=== PATIENT | female | born 1970 | race Caucasian/White ===

== ENCOUNTER → 2018-06-05 | Outpatient (CLI) | payer BC ==
[~2018-06-05] MED LIST: ACET325T9 PO; CITA20TA6 PO; FLECTOR1 EACH TD; IBUP-1027 PO; LIDOCAINE 2%/EPI 1:100,000 20 ML VIAL. IJ ONE; NORG1TAB8 PO; OXYC1TAB15 PO
--- NOTE | 2018-06-07 11:09 | PATHOLOGY ---
[facility] Accession Number: [id number] . 01 Material submitted: . LEFT BREAST TISSUE, 6:00, 8CMFN . 01 Clinical history: . Left breast mass . 02 Diagnosis: Breast tissue, left breast mass 6:00 needle biopsies: - INVASIVE DUCTAL CARCINOMA, HISTOLOGIC GRADE 2. SEE COMMENT. LBQ/06/06/2018 . 02 Comment: Sections of the left breast mass at 6:00 needle biopsy reveal an invasive mammary carcinoma. The tumor shows little tubule formation, moderate nuclear pleomorphism, and focal moderate mitotic activity. The invasive carcinoma measures up to 0.8-0.9 cm in greatest dimension on the glass slide. There is no lymphovascular tumor invasion. There are no tumor associated calcifications. The morphologic findings are supportive of the diagnosis of an invasive ductal carcinoma, histologic grade 2. Breast prognostic studies will be obtained, the results of which will be reported separately. The case is also examined by Dr. Sharif, who concurs with the diagnosis. (JPM/db; 06/06/2018) . 02 Electronically signed: . Jaylen Edouard MD, Pathologist NPI- [id number] . 01 Gross description: . Received in formalin labeled "Elizabeth Gracia, left breast 6:00," and additionally labeled on the requisition as "8 cm FN," are multiple needle cores of yellow-cuenca fibrofatty tissue measuring 2.1 x 1.2 x 0.3 cm in aggregate dimensions. The tissue is submitted in its entirety in cassette A1 through A3. The cold ischemic time is 2 minutes. The total formalin fixation time is 12 hours and 34 minutes. (TSD; 06/05/2018) TOB/TOB . 02 Pathologist provided ICD-10: C50.912 . 02 CPT . 682851 Specimen Comment: A courtesy copy of this report has been sent to Specimen Comment: [phone], , . Specimen Comment: Report sent to ,DR LUEVANO / DR HUERTA Performed at: 01 [facility] [address], [place] [id number] MD Abdoulaye Jaime MD Phone: [phone] Performed at: 02 [facility] [address], [place] [id number] MD Jaylen Edouard MD Phone: [phone]
--- NOTE | 2018-06-07 11:30 | RAD ---
Ultrasound-guided left breast biopsy, 06/05/2018: History: Breast nodule Previous studies demonstrated a suspicious nodule at the 5-6:00 location in the left breast. Under local anesthesia, aseptic conditions and sonographic guidance the [facility] biopsy instrument was passed into the posterior aspect of this nodule via a lateral approach. Multiple 12-gauge vacuum-assisted core samples were obtained and sent to pathology for evaluation. A biopsy marker was then deposited at the biopsy site. The biopsy instrument was removed and hemostasis obtained. Two-view postprocedural digital mammograms were obtained to document position of the biopsy marker. The marker lies along the anterior margin of the biopsied lesion. The patient tolerated the procedure well and left the department in good condition. The subsequent pathology report indicated the presence of invasive ductal carcinoma. This is considered to be a concordant finding. Note: The findings were called to personnel in Dr. Klein's office at 11:25 AM on 06/07/2018.
--- NOTE | 2018-06-13 08:34 | RAD ---
Ultrasound-guided left breast biopsy, 06/05/2018: History: Breast nodule Previous studies demonstrated a suspicious nodule at the 5-6:00 location in the left breast. Under local anesthesia, aseptic conditions and sonographic guidance the [employer] biopsy instrument was passed into the posterior aspect of this nodule via a lateral approach. Multiple 12-gauge vacuum-assisted core samples were obtained and sent to pathology for evaluation. A biopsy marker was then deposited at the biopsy site. The biopsy instrument was removed and hemostasis obtained. Two-view postprocedural digital mammograms were obtained to document position of the biopsy marker. The marker lies along the anterior margin of the biopsied lesion. The patient tolerated the procedure well and left the department in good condition. The subsequent pathology report indicated the presence of invasive ductal carcinoma. This is considered to be a concordant finding. Note: The findings were called to personnel in Dr. Klein's office at 11:25 AM on 06/07/2018. DICTATED and SIGNED BY: BELKIS AU MD DATE: 06/05/18 0932 MTDD
== END | disposition home or self-care (01) ==
LOC: US 08:11
PROVIDERS: ATTEND Surgery
DX: C50.112 Malignant neoplasm of central portion of left female breast (principal); F17.210 Nicotine dependence, cigarettes, uncomplicated; Z85.3 Personal history of malignant neoplasm of breast; Z91.048 Other nonmedicinal substance allergy status
CPT/HCPCS: 19083; 77065; 88305; 88361; C1713; 19085; 76942

== ENCOUNTER 2018-06-26 06:29 | Inpatient (IN) | payer BC ==
[2018-06-26] VITALS (9 sets, daily range): BP systolic 101–119; BP diastolic 52–69
[~2018-06-26] VITALS: Ht 172.7 cm; Wt 98.0 kg
[~2018-06-26 06:29] MED LIST changes: -ACET325T9 PO; -LIDOCAINE 2%/EPI 1:100,000 20 ML VIAL. IJ ONE; -OXYC1TAB15 PO
[2018-06-26] MEDS ORDERED: ONDANSETRON PF 4 MG/2 ML VIAL. IV PRN ×2 (07:00→12:00)
[2018-06-26] MEDS ORDERED: HYDROmorphone 2 MG/ML VIAL IV PRN ×2 (07:00→12:00)
[2018-06-26] MEDS ORDERED: MORPHINE SULFATE 2 MG/ML VIAL. IV PRN (07:00)
[2018-06-26] MEDS ORDERED: LIDOCAINE 1% PF 2 ML VIAL. ID PRN (07:00)
[2018-06-26] MEDS ORDERED: fentaNYL PF VIAL 100 MCG/2 ML VIAL IV PRN ×2 (07:00)
[2018-06-26] MEDS ORDERED: PROCHLORPERAZINE 10 MG/2 ML VIAL. IV PRN (07:00)
[2018-06-26] MEDS: IV RINGERS,LACTATED 1000ML 1,000 ML IV SCH ×2 (07:01→12:14)
[2018-06-26] MEDS ORDERED: ceFAZolin 2GM PREMIX 2 GM/50 ML BAG IV ONE (08:00)
[2018-06-26] MEDS ORDERED: ISOSULFAN BLUE 50 MG/5 ML VIAL. SQ ONE (08:13)
[2018-06-26] MEDS ORDERED: LIDOCAINE 2% PF 5 ML VIAL. ONE (08:19)
[2018-06-26] MEDS ORDERED: PROPOFOL 20 ML IV ONE (08:19)
[2018-06-26] MEDS ORDERED: ONDANSETRON PF 4 MG/2 ML VIAL. ONE (08:19)
[2018-06-26] MEDS ORDERED: SEVOFLURANE 61 TO 120 MINUTES. IH ONE (08:19)
[2018-06-26] MEDS ORDERED: BUPIVAC MPF-EPI 0.5%-1:200000 30 ML VIAL. ONE (08:33)
[2018-06-26] MEDS ORDERED: IOHEXOL 300 MG/ML 100ML VIAL. ONE (08:34)
[2018-06-26] MEDS ORDERED: KETOROLAC 30 MG/ML INJ FOR OR. INJ ONE (10:52)
[2018-06-26] MEDS ORDERED: fentaNYL PF VIAL 100 MCG/2 ML VIAL ONE (11:22)
--- NOTE | 2018-06-26 11:52 | PDOC ---
BRIEF OPERATIVE NOTE Date: Jun 26, 2018 Pre-Op Diagnosis invasive carcinoma left breast Post-Op Diagnosis same Procedure Performed left breast lumpectomy with axillary node dissection after SLN biopsies times three Surgeon Ernie Male Impersonator Rupali BASS Anesthesia Type: General Blood Loss 50cc IV Fluid 650cc Specimens Obtained SLN times three, left breast mass 6:00, left axillary contents Findings positive SLN Complications none JERRY LUEVANO MD Jun 26, 2018 11:52
[2018-06-26] MEDS ORDERED: diphenhydrAMINE HCL 25 MG CAPSULE PO PRN (12:00)
[2018-06-26] MEDS ORDERED: 0.9 % SODIUM CHLORIDE 10 ML DISP.SYRIN. IV PRN (12:00)
[2018-06-26] MEDS ORDERED: oxyCODONE/APAP 5/325 1 TAB TABLET PO PRN (12:00)
[2018-06-26] MEDS ORDERED: diphenhydrAMINE 50 MG/ML VIAL ONE (12:09)
[2018-06-26] MEDS ORDERED: diphenhydrAMINE 50 MG/ML VIAL IVP ONE (12:15)
[2018-06-26] MEDS ORDERED: FAMOTIDINE 20 MG/2 ML VIAL IVP ONE (12:45)
[2018-06-26] MEDS ORDERED: FAMOTIDINE 20 MG/2 ML VIAL ONE (12:46)
--- NOTE | 2018-06-26 14:01 | NUR ---
Patient brought up by transport via bed from PACU. Patient is resting in room 420. Admission in progress.
[2018-06-26] MEDS: POTASSIUM CL 20MEQ-0.45% NACL 1,000 ML IV SCH (14:22)
[2018-06-26] MEDS: oxyCODONE/APAP 5/325 1 TAB TABLET PO PRN ×2 (19:22→23:18)
[2018-06-26] MEDS: DOCUSATE SODIUM 100 MG CAPSULE. PO SCH (21:10)
[2018-06-27] MEDS: POTASSIUM CL 20MEQ-0.45% NACL 1,000 ML IV SCH ×2 (01:45→12:52)
[2018-06-27 03:00] VITALS: BP 113/65
[2018-06-27] MEDS: oxyCODONE/APAP 5/325 1 TAB TABLET PO PRN ×2 (06:03→12:39)
[2018-06-27 07:00] VITALS: BP 112/62
[2018-06-27] MEDS: DOCUSATE SODIUM 100 MG CAPSULE. PO SCH (08:15)
[2018-06-27] MEDS ORDERED: ENOXAPARIN 40 MG/0.4 ML SYRINGE. SQ SCH (09:00)
[2018-06-27] MEDS ORDERED: OXYC1TAB15 PO (09:30)
--- NOTE | 2018-06-27 09:30 | PDOC ---
GARY REYES APRN 06/27/18 0930: SURGICAL PROGRESS NOTE Subjective pain better controlled no nausea or emesis urinating tolerating diet Vital Signs Vital Signs Date Time Temp Pulse Resp B/P (MAP) Pulse Ox O2 Delivery O2 Flow Rate FiO2 06/27/18 07:10 Room Air 06/27/18 07:00 97.8 72 16 112/62 (79) 94 97.8 06/26/18 11:48 10 I&O Intake and Output 06/27/18 07:00 Intake Total 1450 ml Output Total 2220 ml Balance -770 ml Intake Oral 300 ml IV Total 1150 ml Output Urine Total 2050 ml Drainage Total 120 ml Estimated Blood Loss 50 ml # Voids 1 General: Alert, Oriented X3, Cooperative, No acute distress Skin: Other (left breast incision dressing dry, verito serosang) Problem List s/p left breast lumpectomy, axillary node dissection Home after lunch if pain managed JERRY LUEVANO MD 06/27/18 1055: SURGICAL PROGRESS NOTE Assessment/Plan pt seen at bedside questions answered home today f/u [facility] office GARY REYES APRN Jun 27, 2018 09:30 JERRY LUEVANO MD Jun 27, 2018 10:55
--- NOTE | 2018-06-27 09:32 | DISCH ---
DISCHARGE INSTRUCTIONS Condition on Discharge Condition on Discharge: Stable Activity After Discharge Activity Instructions for Disc: Activity as tolerated Bathing Instructions: Shower-keep dressing dry Driving Instructions after Dis: Do not drive Diet after Discharge Diet after Discharge: Regular Wound Incision Care Wound/Incision Care: May get incision wet, Reinforce dressing PRN Other wound/incision instructi: drain care, empty am/pm record output Contacting the DRFlor after DC Call your doctor for: Concerns you may have Follow-Up Follow up with: Dr Klein 1 week GARY REYES WHITE LEAD FILTERER Jun 27, 2018 09:32
--- NOTE | 2018-06-27 10:57 | PDOC3 ---
Discharge Summary Visit Information Date of Admission: Jun 26, 2018 Date of Discharge: Jun 27, 2018 Admitting Diagnosis Comment: invasive carcinoma left breast Final Diagnosis same with LN metastasis Brief Hospital Course Allergies Allergies Coded Allergies Type Severity Reaction Last Updated Verified No Known Drug Allergies 06/26/18 No Vital Signs Vital Signs Date Time Temp Pulse Resp B/P (MAP) Pulse Ox O2 Delivery O2 Flow Rate FiO2 06/27/18 07:10 Room Air 06/27/18 07:00 97.8 72 16 112/62 (79) 94 97.8 06/26/18 11:48 10 Brief Hospital Course Ms. Gracia is a 48 old female who presented with biopsy proven invasive carcinoma left breast Discharge Information Condition at Discharge: Stable Follow Up: As Needed Disposition/Orders: D/C to Home Scheduled Ibuprofen (Ibuprofen) 400 Mg Tablet, 400 MG PO HS, (Reported) Entered as Reported by: TIANNA FLORES on 03/21/13 1027 Last Taken: Unknown Dose on 06/11/18 Last Action: HELD on 06/26/18 1152 by JERRY LUEVANO Discontinued Medications Citalopram Hydrobromide (Citalopram Hbr) 20 Mg Tablet, 20 MG PO DAILY, (Reported) Entered as Reported by: TIANNA FLORES on 03/21/13 1027 Last Action: Discontinued on 06/22/18 1551 by GALINA STACY Diclofenac Epolamine (Flector) 1 Each Patch.td12, 1 EACH TD BID, (Reported) Entered as Reported by: TIANNA FLORES on 03/21/13 1027 Last Action: Discontinued on 06/22/18 1551 by GALINA STACY Norgestrel-Ethinyl Estradiol (Cryselle) 1 Each Tablet, 1 EACH PO DAILY, (Reported) Entered as Reported by: TIANNA FLORES on 03/21/13 1027 Last Action: Discontinued on 06/22/18 1551 by JERRY DIAS MD Jun 27, 2018 10:57
[2018-06-27 11:00] VITALS: BP 104/53
--- NOTE | 2018-06-27 11:48 | NUR ---
SW following for discharge planning. Discussed with RN, pt is from home with family. Pt having a biopsy today. SW will continue to follow for any discharge planning needs.
--- NOTE | 2018-06-27 11:48 | OP ---
DATE OF SURGERY: 06/27/2018 PREOPERATIVE DIAGNOSIS: Invasive carcinoma, left breast. POSTOPERATIVE DIAGNOSIS: Invasive carcinoma, left breast. PROCEDURE: Left breast lumpectomy with axillary node dissection after sentinel lymph node biopsies x 3. SURGEON: Joshua Luevano MD. HAIR DRESSER: SHELIA Adams. ANESTHESIA: General LMA. ESTIMATED BLOOD LOSS: 50 mL. INTRAVENOUS FLUIDS: 650. INDICATIONS: The patient is a 48-year-old with biopsy proven invasive carcinoma of left breast. She is brought for lumpectomy with sentinel lymph node sampling. OPERATIVE FINDINGS: One of the sentinel node samples showed a focus of invasive cancer and as such, we proceeded with axillary dissection. OPERATIVE REPORT: The patient went to the Radiology suite where she underwent needle localization of the previous biopsy site as well as injection for sentinel node identification. She was taken to the OR, given a general LMA and the left breast prepped and draped in usual sterile fashion. 4 mL of Lymphazurin was injected intradermally circumareolarly in the quadrant corresponding to the mass. Breast was gently massaged for 4 minutes. An axillary incision was made using the C-Trak as a guide and dissection was carried down into the axilla where 3 areas of stained blue "hot" nodes were harvested and sent to Pathology. While awaiting those results, the lumpectomy was performed in the lower quadrant of the breast after infiltrating the skin with local anesthetic. An incision was made and the localization wire delivered into the wound. The mass was removed en bloc and sent to Radiology where specimen radiograph confirmed the presence of the biopsy marker and the localization needle and the radiographically evident mass. Hemostasis obtained with cautery. The breast tissue was approximated with 3-0 Vicryl. The skin was closed with a subcuticular 4-0 Monocryl. Intraoperative report showed one sentinel node involved with metastatic tumor. As such, the axillary contents were swept out en bloc from the axillary vein inferiorly. Care was taken to preserve the long thoracic nerve and the thoracodorsal neurovascular bundle. Hemostasis obtained with cautery. When a correct sponge count was obtained, a 19-Iranian round Arcadio drain was brought through inferior stab wound, sewn to the skin with a silk stitch and left in the depth of the wound for postoperative drainage. Skin closed with subcuticular 4-0 Monocryl. Steri-Strips and sterile dressings applied. The patient awakened from her anesthetic and taken to the recovery room in satisfactory condition. JOSHUA LUEVANO MD DR: TONY/kate JOB#: [id number] / [id number]
--- NOTE | 2018-06-27 13:53 | NUR ---
Pt was discharged to home at 1350 today in stable condition with all personal belongings after reviewing all pertinent information including education, medications, follow up and at home care. Follow up appt scheduled with Dr. Klein at [facility], bulb drain care demonstrated along with written instructions were sent along with pt who was escorted by staff and family to the main exit and driven home by her .
--- NOTE | 2018-06-30 10:07 | PATHOLOGY ---
[facility] Accession Number: [id number] . 01 Material submitted: . PART A: lymph node - LEFT AXILLARY SENTINEL NODE - FS. Modifiers: left, axillary tail PART B: lymph node - LEFT AXILLARY NODE - FS. Modifiers: left, axillary tail PART C: lymph node - LEFT AXILLARY SENTINEL LYMPH NODE - FS. Modifiers: left, axillary tail PART D: breast - LEFT BREAST MASS, 6:00. Modifiers: left, 6:00 PART E: axillary tail of breast - LEFT AXILLARY TISSUE. Modifiers: left . 01 Clinical history: . Left breast lumpectomy; invasive ductal carcinoma, histologic grade II. . 02 Frozen section diagnosis: . GROSS DESCRIPTION A. Part A is received fresh and it is labeled "left axillary sentinel lymph node, hot and blue", and it consists of a 1.5 x 1.3 x 1.2 cm piece of pink-yellow tissue. The specimen is dissected revealing a possible lymph node measuring up to 0.8 x 0.2 x 0.2 cm. This is bisected and all submitted for frozen in block A1. . B. Part B is received fresh and it is labeled "left axillary sentinel lymph node, hot and blue", and it consists of a 3.3 x 2.7 x 1.5 cm piece of pink-yellow adipose tissue. Dissection of the specimen reveals a largely fatty replaced lymph node which measures 1.5 x 0.3 x 0.3 cm. This lymph node is serially sectioned and all submitted in B1-B2 for frozen section. . C. Part C is received fresh and it is labeled "left axillary sentinel lymph node, hot", and it consists of a 2.0 x 1.7 x 1.0 cm piece of pink-yellow soft tissue. Dissection of the specimen reveals a largely fatty replaced lymph node measuring 1.2 x 0.4 x 0.3 cm. This lymph node is bisected and all frozen on block C1. (SK:karthik; 06/26/2018) . FROZEN SECTION DIAGNOSIS: A. Left axillary sentinel lymph node, hot and blue: - Adipose tissue. No definite lymph node. . B. Left axillary sentinel lymph node, hot and blue: - Positive for adenocarcinoma (1 lymph node). . C. Left axillary sentinel lymph node, hot: - One lymph node with no evidence of carcinoma. (SKM:karthik; 06/26/2018) . Frozen section performed at [facility], [address] [facility] [place] [address]. MPK/MBR . 02 Diagnosis: A. Left axillary sentinel lymph node #1, hot and blue: - Fibroadipose tissue - no lymph node identified. . B. Left axillary sentinel lymph node #2, hot and blue: - Metastatic adenocarcinoma. . C. Left axillary sentinel lymph node #3, hot: - Negative for tumor. . D. Breast tissue, left breast wire localized lumpectomy: - Invasive ductal carcinoma, histologic grade 2, forming a tumor mass measuring up to 1.2 cm in greatest dimension. 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 - Invasive carcinoma is approximately 0.3 cm from the closest inked margin. - DCIS is approximately 0.1-0.2 cm from the closest inked margin. - Previous biopsy site changes. - Fibrocystic changes. . E. Segments of adipose tissue and lymph nodes, left axillary: - Seven lymph nodes negative for tumor (0/7). . (JPM:karthik; 06/28/2018) . Special stains performed: Immunoperoxidase stains for AE1/AE3 are performed on A1 and C1. MBR/06/29/2018 . 02 Comment: Sections of the left breast wire localized lumpectomy reveal an invasive grade 2 ductal carcinoma which measures up to 1.2 cm in greatest dimension. Invasive carcinoma is approximately 0.3 cm from the closest inked margin. There is also accompanying intermediate to high-grade ductal carcinoma in situ. DCIS focally is 0.1-0.2 cm from the closest inked margin. . The sentinel lymph nodes are examined at multiple levels. Sections of left axillary sentinel lymph node #1 reveal fibroadipose tissue with no lymph node identified. Sections of left axillary sentinel lymph node #2 show metastatic adenocarcinoma measuring up to 3 mm in greatest dimension. Immunoperoxidase stains for AE1/AE3 are obtained on left sentinel lymph node #1 and left sentinel lymph node #3 and yield the following results: . AE1/AE3 (A1): No lymph node identified - negative for tumor. AE1/AE3 (C1): Negative for tumor. . Thus there are a total of 2 sentinel lymph nodes, one of which shows metastatic adenocarcinoma. . Sections of the separately submitted axillary tissue reveal 7 lymph nodes, all of which are negative for tumor. . Procedure ___ Other: Wire-localized lumpectomy . Specimen Laterality ___ Left . Tumor Site ___ Clock position: 6 o'clock . Tumor Size ___ Greatest dimension of largest invasive focus >1 mm (specify exact measurement) (millimeters): 12 mm . Histologic Type ___ Invasive carcinoma of no special type (invasive ductal carcinoma, not otherwise specified) . Histologic Grade Glandular (Acinar)/Tubular Differentiation ___ Score 3 (<10% of tumor area forming glandular/tubular structures) . Nuclear Pleomorphism ___ Score 2 (cells larger than normal with open vesicular nuclei, visible nucleoli, and moderate variability in both size and shape) . Mitotic Rate ___ Score 2 (4-7 mitoses per mm2) (see Table 1) . Overall Grade ___ Grade 2 (scores of 6 or 7) . Tumor Focality ___ Single focus of invasive carcinoma . Ductal Carcinoma In Situ (DCIS) ___ Present . Architectural Patterns ___ Cribriform ___ Solid . Nuclear Grade ___ Grade 2-3 . Necrosis ___ Not identified . Lobular Carcinoma In Situ ___ No LCIS in specimen . Margins Invasive Carcinoma Margins ___ Uninvolved by invasive carcinoma ___ Distance from closest margin: 3 mm ___ Specify closest margin: ___ Cannot be determined: Specimen not oriented . DCIS Margins ___ Uninvolved by DCIS ___ Distance from closest margin: 1-2 mm ___ Specify closest margin: ___ Cannot be determined: Specimen not oriented. . Regional Lymph Nodes ___ Uninvolved by tumor cells ___ Number of Lymph Nodes Examined: 8 ___ Number of [place] Nodes Examined: 1 . ___ Involved by tumor cells ___ Number of Lymph Nodes with Macrometastases (>2 mm): 1 ___ Size of Largest Metastatic Deposit: 3 mm ___ Extranodal Extension: - Not identified ___ Number of Lymph Nodes Examined: 1 ___ Number of [place] Nodes Examined: 1 . Treatment Effect ___ No known presurgical therapy . Lymphovascular Invasion ___ Not identified . Pathologic Stage Classification (pTNM, AJCC 8th Edition) Primary Tumor (Invasive Carcinoma) ___ pT1c:Tumor >10 mm but < or =20 mm in greatest dimension . Regional Lymph Nodes (pN) Category (pN) ___ pN1a:Metastases in 1 to 3 axillary lymph nodes, at least 1 metastasis larger than 2.0 mm . Additional Pathologic Findings ___Specify: Fibrocystic changes . Microcalcifications ___ Present in DCIS ___ Present in non-neoplastic tissue . Clinical History ___ Radiologic finding - Mass or architectural distortion . . (JPM:brewing director; 06/29/2018) . 02 Electronically signed: . Jaylen Edouard MD, Pathologist NPI- [id number] . 01 Gross description: . D.The specimen is received in formalin, labeled "Elizabeth Gracia, left breast mass, 6:00", is an unoriented fibroadipose tissue with a guide wire in situ weighing 77 g and measuring 9.0 x 6.0 x 2.2 cm. The specimen is partially covered by a thin cuenca-white membrane. The specimen is inked black, serially sectioned perpendicular to the guidewire into 18 slices to reveal a well demarcated cuenca-white, firm mass adjacent to guide wire tip measuring 1.2 x 1.0 x 0.8 cm in slice #11 to slice #13. The mass is 0.2 cm to the closest peripheral margin and greater than 2.0 cm from the remaining margins. The parenchyma surrounding the mass is ha-pink and fibrous. The remaining parenchyma is glistening, yellow, lobulated with cuenca-white fibrous strands interspersed in the approximate ratio 70:30. A diagram of cassette summary, is attached. Filler Mixer tissue is submitted as follows: D1. Slice 1 D2-D3. Slice 2, bisected D4-D7. Slice #10, alternating green and blue in at intersecting cut surface D8-D11. Slice 11, mass in D9, alternating green and blue in at intersecting cut surface D12-D17. Slice 12, mass in D15, alternating green and blue in at intersecting cut surface D18-D22. Slice 13, mass in D20, alternating green and blue in at intersecting cut surface D23-D26. Slice 14, alternating green and blue in at intersecting cut surface D27-D28. Slice 17, bisected D29. Slice #18 . The specimen was excised at:1050 on 06/26/18, placed in formalin at: 1110 on 06/26/18, formalin exposure: Approximately 36 hours and 30 minutes. . E. The specimen is received in formalin, labeled "Elizabeth Gracia, left axillary tissue", are multiple irregular fragments of yellow lobulated adipose tissues measuring 7.0 x 4.5 x 1.5 cm in aggregate. Sectioning reveals several lymph nodes candidates ranging from 0.6 cm up to 1.8 cm in greatest dimension. The lymph nodes are entirely submitted as follows: E1. Single lymph node, serially sectioned E2. Single, lymph node, serially sectioned E3. Single lymph node, serially sectioned E4. Three lymph nodes, bisected and differential inked E5. Adipose tissue with possible lymph nodes candidate E6. Indurated adipose tissue, serially sectioned for possible lymph nodes candidate (SWS; 06/27/2018) RACHAEL/ERNESTINA . 02 Pathologist provided ICD-10: C50.912, D05.12, C77.3 . 02 CPT . 999884, 715788, 787722, 507832, 401089, Q22835 Specimen Comment: A courtesy copy of this report has been sent to Specimen Comment: [phone], . Specimen Comment: Report sent to / DR HUERTA Performed at: 01 [facility] [address], [place], [place] [id number] MD Abdoulaye Jaime MD Phone: [phone] Performed at: 02 [facility] [address] [place], [place] [id number] MD Jaylen Edouard MD Phone: [phone]
[2018-07-24] MEDS ORDERED: ACET325T9 PO (13:11)
== END 2018-06-27 13:50 | disposition home or self-care (01) | DRG 580 ==
LOC: SURG 06:29 → 4 NORTH 11:52
PROVIDERS: ADMIT Surgery; ATTEND Surgery
PROC: 07B60ZX Excision of Left Axillary Lymphatic, Open Approach, Diagnostic (ICD-10-PCS; principal; 2018-06-27)
PROC: 0HBU0ZZ Excision of Left Breast, Open Approach (ICD-10-PCS; 2018-06-27)
DX: C50.912 Malignant neoplasm of unspecified site of left female breast (principal); C77.3 Secondary and unspecified malignant neoplasm of axilla and upper limb lymph nodes
CPT/HCPCS: 19285; 76098; 76942; 77065; 88305; 88307; 88331; 88332; 88342; A7015; A9541; J0696; J0780; J1170; J1200; J1650; J1885; J2001; J2270; J2405; J2704; J3010; J3490; Q9967; Q9968

== ENCOUNTER → 2018-07-18 | Outpatient (CLI) | payer BC ==
[2018-06-27 11:00] VITALS: BP 104/53
[~2018-07-18] MED LIST changes: +ACET325T9 PO; +OXYC1TAB15 PO
--- NOTE | 2018-07-18 12:07 | CARD ---
MR#: [id number] Date of Study: 07/18/2018 Ordering Physician: ARTIE MALONEY, Referring Physician: ARTIE MALONEY, Tech: Malinda Campos [facility] APPROVED REPORT EXAM: Two-dimensional and M-mode echocardiogram with Doppler and color Doppler. Other Information Quality : AverageHR: 69bpm Rhythm : NSR INDICATION Breast Cancer 2D DIMENSIONS RVDd2.9 (2.9-3.5cm)Left Atrium(2D)3.3 (1.6-4.0cm) IVSd0.8 (0.7-1.1cm)Aortic Root(2D)3.0 (2.0-3.7cm) LVDd5.4 (3.9-5.9cm)LVOT Diameter2.1 (1.8-2.4cm) PWd0.9 (0.7-1.1cm)LVDs3.8 (2.5-4.0cm) FS (%) 28.5 %SV76.3 ml LVEF(%)54.4 (>50%) M-Mode DIMENSIONS Left Atrium(MM)3.81 (2.5-4.0cm)Aortic Root3.32 (2.2-3.7cm) Aortic Valve AoV Peak Boyd.130.3cm/sAoV VTI29.3cm AO Peak GR.6.8mmHgLVOT Peak Boyd.101.1cm/s AO Mean GR.4mmHgAVA (VMAX)2.79cm2 SUKHI (VTI)2.80cm2 Mitral Valve MV E Myacumos91.6cm/sMV DECEL [id number] MV A Pzgmqkmk54.5cm/sE/A Ratio1.3 MV A [id number] Pulmonary Valve PV Peak Almtoqdh78.2cm/s Pulmonary Vein S1 Nesabnyl36.5cm/sD2 Cqctqkce64.1cm/s PVa [id number] LEFT VENTRICLE The left ventricle is normal size. There is normal left ventricular wall thickness. The left ventricu lar systolic function is normal and the ejection fraction is within normal range. The Ejection Fracti on is 55-60%. There is normal LV segmental wall motion. The left ventricular diastolic function and f illing is normal for age. RIGHT VENTRICLE The right ventricle is normal size. There is normal right ventricular wall thickness. The right ventr icular systolic function is normal. ATRIA The left atrium size is normal. The right atrium size is normal. The interatrial septum is intact wit h no evidence for an atrial septal defect or patent foramen ovale as noted on 2-D or Doppler imaging. AORTIC VALVE The aortic valve is normal in structure and function. The aortic valve is trileaflet. Doppler and Col or Flow revealed no significant aortic regurgitation. There is no significant aortic valvular stenosi s. MITRAL VALVE The mitral valve is normal in structure and function. There is no evidence of mitral valve prolapse. There is no mitral valve stenosis. Doppler and Color-flow revealed trace mitral regurgitation. TRICUSPID VALVE The tricuspid valve is normal in structure and function. Doppler and Color Flow revealed no tricuspid valve regurgitation noted. There is no tricuspid valve prolapse or vegetation. There is no tricuspid valve stenosis. PULMONIC VALVE The pulmonic valve is not well visualized. GREAT VESSELS The aortic root is normal in size. The ascending aorta is normal in size. The IVC is normal in size a nd collapses >50% with inspiration. PERICARDIAL EFFUSION There is no evidence of significant pericardial effusion. Critical Notification Critical Value: No <Conclusion> The left ventricle is normal size. The left ventricular systolic function is normal and the ejection fraction is within normal range. The Ejection Fraction is 55-60%. There is no significant aortic valvular stenosis. Doppler and Color Flow revealed no significant aortic regurgitation. Doppler and Color-flow revealed trace mitral regurgitation. Doppler and Color Flow revealed no tricuspid valve regurgitation noted. Signed by : King Hernandez MD Electronically Approved : 07/18/2018 12:07:29
== END | disposition home or self-care (01) ==
LOC: ECHO 09:36
PROVIDERS: ATTEND Internal Medicine Hematology & Oncology
DX: C50.112 Malignant neoplasm of central portion of left female breast (principal); Z17.0 Estrogen receptor positive status [ER+]
CPT/HCPCS: 93306

== ENCOUNTER 2018-07-25 15:12 | Day surgery (SDC) | payer BC ==
[~2018-07-25] VITALS: Ht 172.7 cm; Wt 99.3 kg
--- NOTE | 2018-07-25 14:34 | PDOC ---
BRIEF OPERATIVE NOTE Date: July 25, 2018 Pre-Op Diagnosis invasive carcinoma left breast, needs venous access for adjuvant chemotherapy Post-Op Diagnosis same Procedure Performed placement right subclavian power port Surgeon Ernie Anesthesia Type: General Blood Loss 5cc IV Fluid 600cc Specimens Obtained none Findings post procedure CXR shows tip of catheter in the SVC without evidence of pneumothorax Complications none JERRY LUEVANO MD July 25, 2018 14:34
[2018-07-25] MEDS: MORPHINE SULFATE 2 MG/ML VIAL. IV PRN ×2 (14:42→14:52)
[~2018-07-25 15:12] MED LIST changes: +BUPIVAC MPF-EPI 0.5%-1:200000 30 ML VIAL. ONE; +BUPIVACAINE MPF 0.5% 30 ML VIAL. ONE; +DEXAMETHASONE SOD PHOS 4 MG/ML VIAL ONE; +FAMOTIDINE 20 MG/2 ML VIAL ONE; +HEPARIN SODIUM 5,000 UNIT in IV NORMAL SALINE 500ML BAG 500 ML IRR ONE; +HYDROmorphone 2 MG/ML VIAL IV PRN; +IV RINGERS,LACTATED 1000ML 1,000 ML IV SCH; +LIDOCAINE 2% PF 5 ML VIAL. ONE; +MIDAZOLAM HCL/PF 2 MG/2 ML VIAL. ONE; +NEOMY/BACITR/POLYMYXIN OINT PACKET. TP ONE; +ONDANSETRON PF 4 MG/2 ML VIAL. IV PRN; +ONDANSETRON PF 4 MG/2 ML VIAL. ONE; +PROCHLORPERAZINE 10 MG/2 ML VIAL. IV PRN; +PROPOFOL 20 ML IV ONE; +SEVOFLURANE 31 TO 60 MINUTES. IH ONE; +ceFAZolin 2GM PREMIX 2 GM/50 ML BAG IV ONE; +diphenhydrAMINE 50 MG/ML VIAL ONE; +fentaNYL PF VIAL 100 MCG/2 ML VIAL IV PRN; +fentaNYL PF VIAL 100 MCG/2 ML VIAL ONE
--- NOTE | 2018-07-25 15:26 | RAD ---
Portable chest, 07/25/2018: HISTORY: Check port placement A right Port-A-Cath is in place extending into the superior aspect of the right atrium. The heart size and pulmonary vascularity are normal. No pulmonary infiltrate is seen. There is no evidence of pleural fluid or pneumothorax. IMPRESSION: 1. The right Port-A-Cath extends into the superior aspect of the right atrium. 2. No acute cardiopulmonary abnormality is detected. Electronically signed by: Francisco Lopez MD (07/25/2018 3:24 PM) [facility]
[2018-07-25] MEDS ORDERED: HYDROcodone/APAP 5/325MG 1 TAB TABLET PO ONE (15:45)
[2018-07-25 15:46] VITALS: BP 124/74
--- NOTE | 2018-07-25 15:54 | OP ---
DATE OF SURGERY: 07/25/2018 PREOPERATIVE DIAGNOSIS: Invasive carcinoma, left breast needs venous access for adjuvant chemotherapy. POSTOPERATIVE DIAGNOSIS: Invasive carcinoma, left breast needs venous access for adjuvant chemotherapy. PROCEDURE: Placement of a right subclavian PowerPort. SURGEON: Jerry Luevano MD. ANESTHESIA: General LMA. ESTIMATED BLOOD LOSS: 5 mL. INTRAVENOUS FLUIDS: 600 mL. INDICATIONS: The patient is a 48-year-old status post lumpectomy, sentinel lymph node biopsy for an invasive left breast cancer. She is brought for port placement to initiate adjuvant chemotherapy. DESCRIPTION OF PROCEDURE: The patient was taken to the operating suite, given a general LMA and the infraclavicular areas were prepped and draped in usual sterile fashion. With the bed in Trendelenburg, 0.5% plain Marcaine was infiltrated a fingerbreadth below the clavicle at the junction medial two-thirds lateral third. Small incision was made and a seeker needle used to cannulate the subclavian vein. Flexible guidewire was advanced under fluoroscopic observation into the superior vena cava and the bed was returned to level. The pocket incision was infiltrated with 0.5% Marcaine with epinephrine, incised and developed with blunt dissection to accommodate the reservoir. Catheter laid on the chest and with a C-arm, cut to an appropriate length. The catheter was then tunneled from the insertion site to the pocket site where it was attached to the reservoir. The reservoir was seated in the pocket and with the bed back in Trendelenburg under fluoroscopic observation, the dilator and sheath were passed over the wire. The wire was removed. The dilator was removed. The catheter was threaded through the sheath and the sheath was then removed. There was good flow into and out of the catheter at completion of placement. Pocket incision closed with interrupted 3-0 Vicryl and the subcutaneous tissue. Skin incision was closed with subcuticular 4-0 Monocryl. Steri-Strips and a sterile dressing applied. Postprocedure upright chest x-ray showed the tip of the catheter to reside in superior vena cava without evidence of a pneumothorax. The patient was taken to the postoperative area in stable condition having tolerated the procedure well. JERRY LUEVANO MD DR: TONY/kate JOB#: [id number] / [id number]
== END 2018-07-25 16:08 | disposition home or self-care (01) ==
LOC: SURG 15:12
PROVIDERS: ATTEND Surgery
DX: Z45.2 Encounter for adjustment and management of vascular access device (principal); C50.912 Malignant neoplasm of unspecified site of left female breast; F17.210 Nicotine dependence, cigarettes, uncomplicated; Z98.890 Other specified postprocedural states; Z72.89 Other problems related to lifestyle; Z88.8 Allergy status to other drugs, medicaments and biological substances
CPT/HCPCS: 36561; 77001; A7015; C1788; J0696; J0780; J1100; J1200; J1644; J2001; J2250; J2270; J2405; J2704; J3010; J3490; J7040; 36556; 71045

== ENCOUNTER → 2019-09-06 | Outpatient (CLI) | payer BC, OTHER ==
[~2019-09-06] MED LIST changes: -BUPIVAC MPF-EPI 0.5%-1:200000 30 ML VIAL. ONE; -BUPIVACAINE MPF 0.5% 30 ML VIAL. ONE; -DEXAMETHASONE SOD PHOS 4 MG/ML VIAL ONE; -FAMOTIDINE 20 MG/2 ML VIAL ONE; -HEPARIN SODIUM 5,000 UNIT in IV NORMAL SALINE 500ML BAG 500 ML IRR ONE; -HYDROmorphone 2 MG/ML VIAL IV PRN; -IV RINGERS,LACTATED 1000ML 1,000 ML IV SCH; -LIDOCAINE 2% PF 5 ML VIAL. ONE; -MIDAZOLAM HCL/PF 2 MG/2 ML VIAL. ONE; -NEOMY/BACITR/POLYMYXIN OINT PACKET. TP ONE; -ONDANSETRON PF 4 MG/2 ML VIAL. IV PRN; -ONDANSETRON PF 4 MG/2 ML VIAL. ONE; -PROCHLORPERAZINE 10 MG/2 ML VIAL. IV PRN; -PROPOFOL 20 ML IV ONE; -SEVOFLURANE 31 TO 60 MINUTES. IH ONE; +TAMO20TA PO; -ceFAZolin 2GM PREMIX 2 GM/50 ML BAG IV ONE; -diphenhydrAMINE 50 MG/ML VIAL ONE; -fentaNYL PF VIAL 100 MCG/2 ML VIAL IV PRN; -fentaNYL PF VIAL 100 MCG/2 ML VIAL ONE
--- NOTE | 2019-09-06 10:19 | KCIC ---
Examination: MRI of the right knee without contrast HISTORY: History of right knee injury, pain COMPARISON: None available TECHNIQUE: Multiplanar, multisequence MR imaging of the right knee was performed without contrast. FINDINGS: The anterior cruciate ligament, posterior cruciate ligament appear intact. There is mild increase signal identified in the posterior horn of the medial meniscus likely a small tear. There is a multilocular cystic structure identified measuring 1.5 cm identified arising from the posterior root of the medial meniscus likely a ganglion cyst. The lateral meniscus appears intact. The medial collateral ligament appears intact. Lateral collateral ligamentous complex including the fibular collateral ligament, biceps femoris tendon, popliteus tendon appear intact. The extensor mechanism appears intact. The medial retinaculum, lateral retinaculum appear intact. There is a cystic structure identified in the soft tissue anterior and medial aspect of the knee measuring 6.9 x 7.1 cm could be a moralle-jarocho lesion or hematoma. Mild superficial fraying of cartilage identified in the medial, lateral, patellofemoral compartments. IMPRESSION: 1. A cystic structure identified in the soft tissue anterior and medial aspect of the knee measuring 6.9 x 7.1 cm could be a moralle-jarocho lesion or hematoma. Follow-up to resolution. 2. Mild increased T2 signal identified in the posterior horn of the medial meniscus could be a small tear. 3. A 1.5 cm multiloculated cystic structure identified arising from the posterior root of the medial meniscus likely a ganglion cyst. 4. Small knee joint effusion. 5. Grade I chondromalacia medial, lateral, patellofemoral compartments. Electronically signed by: Mitch Uribe MD (09/06/2019 10:17 AM) [id number]
== END ==
LOC: KCIC MRI 08:18
PROVIDERS: ATTEND Family Medicine
DX: S89.91XA Unspecified injury of right lower leg, initial encounter (principal); M25.461 Effusion, right knee; M94.29 Chondromalacia, multiple sites; X58.XXXA Exposure to other specified factors, initial encounter; Y92.89 Other specified places as the place of occurrence of the external cause; Y93.89 Activity, other specified; Y99.8 Other external cause status
CPT/HCPCS: 73721